=== PATIENT | female | born 1985 | race Caucasian/White ===

== ENCOUNTER → 2017-07-11 10:04 | Outpatient (CLI) | payer OTHER, SELFPAY ==
[2017-07-11 14:49] LABS: Chlamydia Trachomatis by PCR Negative (Negative); Neisserai gonorrhoeae by PCR Negative (Negative); Probe Check PASS; Sample Adequacy Control PASS; Specimen Processing Control PASS
[2017-07-14 13:21] LABS: HPV Reflexed? NOT INDICATED
== END ==
PROVIDERS: Visit Provider Obstetrics & Gynecology
DX: Z12.4 Encounter for screening for malignant neoplasm of cervix (principal); Z11.3 Encounter for screening for infections with a predominantly sexual mode of transmission
CPT/HCPCS: 87491; 87591; 88175; G0145

== ENCOUNTER → 2017-07-21 15:21 | Outpatient (CLI) | payer OTHER, SELFPAY ==
[2017-07-21 16:49] LABS: Absolute Lymphocyte Count 1.67 X10^3/ul (0.83-4.51); Absolute Neutrophil Count 5.3 X10^3/uL (2.0-7.7); Basophil# 0.01 X10^3/uL; Basophil% 0.1 % (0-1); Color, Urine Yellow (Yellow); Eosinophil# 0.13 X10^3/uL; Eosinophils% 1.7 % (0-5); Glucose, Dipstick Normal (Normal); Hematocrit 41.5 % (37-47); Hemoglobin 14.4 g/dl (12.0-15.0); Ketone-Dipstick Negative (Negative); Leukocyte Esterase-Dipstick 100 /ul (Negative); Lymphocyte # 1.67 X10^3/ul (4.0); Lymphocyte % 22.1 % (19-41); Mean Corp Hgb Conc 34.7 g/gl (32-36); Mean Corpuscular Hgb 30.3 pg (27.0-32.0); Mean Corpuscular Volume 87.2 fL (81-99); Mean Platelet Vol. 10.7 fl (6.2-12.0); Monocyte# 0.47 X10^3/uL; Monocyte% 6.2 % (0-10); Neutrophil # 5.25 X10^3/uL (2.7-7.7); Neutrophil % 69.8 % (47-70); Nitrite-Dipstick Negative (Negative); Occult Blood-Urine 10 /ul (Negative); Platelet Count 294 K/mm3 (150-450); Protein-Dipstick 15 mg/dl (Negative); RBC Distribution Width SD 40.5 fl (35.1-43.9); Red Blood Count 4.76 M/mm3 (4.2-5.4); Urine Bilirubin Dipstick Negative (Negative); Urine Clarity Cloudy (Clear); Urine Urobilinogen Normal (Normal); White Blood Count 7.5 K/mm3 (4.4-11.0)
[2017-07-21 16:51] LABS: POSITIVE COUNT NO; POSITIVE DIFFERENTIAL NO; POSITIVE MORPHOLOGY NO
[2017-07-21 17:23] LABS: Thyroid Stim Hormone (TSH) 0.14 uIU/mL (0.358-3.74)
[2017-07-21 18:01] LABS: HIV - WCH Non-Reactive (Nonreactive); Rubella IgG 26.4 IU/mL
[2017-07-28 09:09] LABS: Prenatal RPR NONREACTIVE (NONREACTIVE)
[2017-07-30 03:05] LABS: Free T3 3.2 pg/mL (2.18-3.98)
[2017-07-31 11:57] LABS: HEPATITIS B SURFACE AG Negative (Negative); Hep C Antibodies <0.1 s/co ratio (0.0-0.9)
== END ==
PROVIDERS: Visit Provider Obstetrics & Gynecology
DX: O99.281 Endocrine, nutritional and metabolic diseases complicating pregnancy, first trimester (principal); E03.9 Hypothyroidism, unspecified; Z3A.00 Weeks of gestation of pregnancy not specified
CPT/HCPCS: 36415; 81002; 84439; 84443; 84481; 85025; 86703; 86762; 86803; 87340

== ENCOUNTER → 2017-12-04 16:22 | Outpatient (CLI) | payer OTHER, SELFPAY ==
[2017-12-04 17:52] LABS: Glucose Challenge Gest 1H 50g 144 mg/dL (70-140)
[2017-12-04 18:02] LABS: Hematocrit 35.3 % (37-47); Hemoglobin 11.6 g/dl (12.0-15.0); Mean Corp Hgb Conc 32.9 g/gl (32-36); Mean Corpuscular Hgb 29.5 pg (27.0-32.0); Mean Corpuscular Volume 89.8 fL (81-99); Mean Platelet Vol. 10.1 fl (6.2-12.0); Platelet Count 233 K/mm3 (150-450); RBC Distribution Width CV 13.6 % (11.6-14.6); RBC Distribution Width SD 44.6 fl (35.1-43.9); Red Blood Count 3.93 M/mm3 (4.2-5.4); White Blood Count 8.3 K/mm3 (4.4-11.0)
[2017-12-04 18:06] LABS: Scan Indicated on CBC? Y/N NO
== END ==
PROVIDERS: Visit Provider Obstetrics & Gynecology
DX: Z34.83 Encounter for supervision of other normal pregnancy, third trimester (principal)
CPT/HCPCS: 36415; 82950; 85027

== ENCOUNTER → 2017-12-11 09:27 | Outpatient (CLI) | payer OTHER, SELFPAY ==
[2017-12-11 11:22] LABS: Glucose GTT-Gestation. Fasting 80 mg/dL (<105)
[2017-12-11 12:21] LABS: Glucose GTT-Gestational 1 Hr 118 mg/dL (<190)
[2017-12-11 14:24] LABS: Glucose GTT-Gestational 2 Hr 117 mg/dL (<165)
[2017-12-11 14:25] LABS: Glucose GTT-Gestational 3 Hr 76 L (<145)
== END ==
PROVIDERS: Referring Provider Obstetrics & Gynecology; Visit Provider Obstetrics & Gynecology
DX: O24.912 Unspecified diabetes mellitus in pregnancy, second trimester (principal)
CPT/HCPCS: 36415; 82951; 82952

== ENCOUNTER → 2018-01-29 11:14 | Outpatient (CLI) | payer OTHER, SELFPAY | PROVIDERS: Visit Provider Obstetrics & Gynecology | DX: Z36.85 Encounter for antenatal screening for Streptococcus B (principal) | CPT/HCPCS: 87081 ==

== ENCOUNTER 2018-02-18 04:03 | Inpatient (IN) | payer OTHER, SELFPAY ==
[2016-02-29 19:20] VITALS: BMI 32.1
[2018-02-18 04:05] VITALS: BMI 33.5
[2018-02-18] MEDS: Lactated Ringers 1,000 ML 50 ML IV ×2 (04:15→10:23)
[2018-02-18 04:27] LABS: Hematocrit 31.3 % (37-47); Mean Corp Hgb Conc 31.9 g/gl (32-36); Mean Corpuscular Hgb 27.3 pg (27.0-32.0); Mean Corpuscular Volume 85.5 fL (81-99); Mean Platelet Vol. 10.7 fl (6.2-12.0); Platelet Count 221 K/mm3 (150-450); RBC Distribution Width CV 14.9 % (11.6-14.6); RBC Distribution Width SD 45.1 fl (35.1-43.9); Red Blood Count 3.66 M/mm3 (4.2-5.4); Scan Indicated on CBC? Y/N NO
--- NOTE | 2018-02-18 04:31 | PCM.PN.BLA ---
Progress Note 39 3/7 wk SROM at 0245 , clear EFM 150 with accels, avg variability. several ? subtle lates UCs q 3- 4mins cx: 2 / BALLOTABLE per RN check A/P 39 3/7 wk EGA SROM. Ballotable 2 cm. Admit pitocin augment prn. Watch tolerance of labor, progress. Prior LGA 9# + delivery.
[2018-02-18] MEDS: Oxytocin 30 units/NS 500 ml 30 UNITS/500 ML IV.SOLN IV (07:21)
--- NOTE | 2018-02-18 08:58 | PCM.PN.BLA ---
Progress Note 39 3/7 wk EGA. SROM Sitting up in chair, rocking. Rates pain at 1/10 on pain scale AVSS Pitocin started, @ 4 mIU/min during my rounds EFM 140s min to avg variability. Accels. UCs q 3-4 mins CX; deferred 2/2 SROM. 2.5/70/-3 on admission with ballotable vtx. A/P: SROM at 29 3/7 wk Pitocin induction after SROM. Continue pitocin per protocol. Watch progress, descent. Anticipate
[2018-02-18] MEDS: fentaNYL-bupivacaine (epidural) 100 ML BAG EPIDURAL (10:50)
--- NOTE | 2018-02-18 13:38 | PCM.PN.BLA ---
Progress Note LABOR PROGRESS NOTE 39 3/7 wk. Labor Comfortable w/ epidural. Joyce catheter in place AVSS Pitocin induction after SROM EFM 130-140s avg variability. accels UCs q 2-3 mins Cervix: 4/75/-2 with caput noted. Joyce bulb reduced to above vtx A/P: 39 3/7 wk EGA Pitocin induction after SROM. continue pitocin. Position changes to facilitate rotation and descent. Anticipate
[2018-02-18] MEDS: Oxytocin 30 units/NS 500 ml 30 UNITS/500 ML IV.SOLN 334 UNITS IV (15:06)
--- NOTE | 2018-02-18 15:08 | PCM.OB.VAG ---
Vaginal Delivery Maternal Presentation: Spontaneous Rupture of Membranes 39 3/7 wk SROM Method of Induction: Pitocin Amniotic Membrane Rupture Type: Spontaneous at home Amniotic Fluid Description: Clear Final ANDRÉS: 02/22/18 Gestational age: 39 Weeks and 3 Days Date of Procedure: 02/18/18 Pre-Operative Diagnosis: 39 3/7 wk SROM Post-Operative Diagnosis: same Surgery/ Procedure Performed: Spontaneous Vaginal Delivery Anesthesiologist: Suzanna Gordon Type of Anesthesia: Epidural Description of Procedure: of a corbin viable female over intact perineum to laceration. Head delivered DWAYNE. OP and nares bulb suctioned on perineum. No nuchal cord. Shoulders delivered easily with forward rotation of anterior shoulder. Infant to maternal abdomen . Delayed cord clamping, then cord clamped x two and cut. PP exam: 2nd deg posterior vaginal and perineal laceration repaired to hemostatic, intact under epidural with 3-0 Vicryl No other lacerations noted Placenta delivered by spont expulsion, expression. 3V normal appearing, intact with trailing membranes EBL 250 cc Pt and infant tolerated delivery well. To recovery, stable condition Ray lane counts correct x two. Presentation: Vertex, DWAYNE Placental Delivery Description: Spontaneous, Expressed Cord Vessel Description: 3 Vessels Cord Entanglement: None Estimated Blood Loss: 250 Infant A gender: Female (1 minute): 8 (5 minute): 9 Episiotomy Description: None Laceration: Midline, Perineal Extension/lac, Vaginal Extension/lac, 2nd degree - repaired to hemostatic, intact with 3-0 vicryl Medications given after delivery: IV Pitocin Complications: None
--- NOTE | 2018-02-18 15:12 | PCM.DCVAG ---
Discharge Diet: No Restrictions Return to work on:: 04/02/18 May resume sexual activity in: 4-6 weeks Additional Activity Instructions:: Nothing in the vagina for 4-6 weeks. You may return to work/school in 6 weeks. Additional Instructions: If you experience any of the following, contact your healthcare provider. Bleeding that soaks a pad every hour for 2 hours Fever 100.4 or higher Unrelieved abdominal pain Problems urinating (including inability to urinate or burning while urinating). Visual changes Severe headache Flu-like symptoms Pain or redness in one of both of your breasts Pain, warmth, tenderness or swelling in your legs, especially the calf area Frequent nausea and vomiting Symptoms of depression or anxiety If you experience any of the following, call 911 or go to the nearest Emergency Room. Chest pain Problems breathing Seizure activity Partial or complete paralysis of a body part, slurred speech, weakness or drooping of the face, or a sudden inability to walk or hold your balance Allergies/Adverse Reactions: Allergies No Known Allergies Allergy (Verified 02/18/18 04:41) Medications to take at Discharge Vits [Prenatabs FA] 2 tablet PO DAILY 02/29/16 Please Follow Up With: Janet Montes MD - [phone] When: Call to make an appointment with your doctor in 6 weeks. Primary Care Physician: Care Physician,No Primary [Primary Care Provider] - Test Results: Test results from this visit will be discussed in further detail at your follow-up appointment, if applicable. Proposed Discharge Date: 02/20/18
--- NOTE | 2018-02-18 15:13 | DCINST_ITS ---
Discharge Diet: No Restrictions Return to work on:: 04/02/18 May resume sexual activity in: 4-6 weeks Additional Activity Instructions:: Nothing in the vagina for 4-6 weeks. You may return to work/school in 6 weeks. Additional Instructions: If you experience any of the following, contact your healthcare provider. * Bleeding that soaks a pad every hour for 2 hours * Fever 100.4 or higher * Unrelieved abdominal pain * Problems urinating (including inability to urinate or burning while urinating). * Visual changes * Severe headache * Flu-like symptoms * Pain or redness in one of both of your breasts * Pain, warmth, tenderness or swelling in your legs, especially the calf area * Frequent nausea and vomiting * Symptoms of depression or anxiety If you experience any of the following, call 911 or go to the nearest Emergency Room. * Chest pain * Problems breathing * Seizure activity * Partial or complete paralysis of a body part, slurred speech, weakness or drooping of the face, or a sudden inability to walk or hold your balance Allergies/Adverse Reactions: Allergies No Known Allergies Allergy (Verified 02/18/18 04:41) Medications to take at Discharge Vits [Prenatabs FA] 2 tablet PO DAILY 02/29/16 Please Follow Up With: Janet Montes MD - [phone] When: Call to make an appointment with your doctor in 6 weeks. Primary Care Physician: Care Physician,No Primary [Primary Care Provider] - Test Results: Test results from this visit will be discussed in further detail at your follow- up appointment, if applicable. Proposed Discharge Date: 02/20/18
[2018-02-18] MEDS: Oxytocin 30 units/NS 500 ml 30 UNITS/500 ML IV.SOLN 167 UNITS IV (15:36)
[2018-02-18] MEDS: 0.9% Saline Lock 10 ML Syringe IV (17:27)
[2018-02-18] MEDS: Ibuprofen 600 MG Tablet PO (18:55)
[2018-02-18 20:00] VITALS: BP 117/48; PULSE 87; RESP 17; TEMP 37.2
[2018-02-18] MEDS: Senna/Docusate Sodium 1 Tablet PO (21:25)
[2018-02-18] MEDS: Dibucaine 30 GM Tube 1 APPLIC TOPICAL (21:25)
[2018-02-19] VITALS: BP 107/56; PULSE 87; RESP 17; TEMP 36.5
--- NOTE | 2018-02-19 08:00 | PCM.PN.OB ---
Subjective: PPD#1 Doing well. breast feeding, but baby is sleeping very well. Minimal discomfort at stitches. No concerns voiced. Baby 9# 2 oz. - Physical Exam General: Alert, Oriented x3, Cooperative, No apparent distress HEENT: Atraumatic Neck: Supple Abdomen: Soft - Fundus firm NT at umbilicus Psych/Mental Status: Normal Affect Vital Signs Temp Pulse Resp BP 97.7 F L 87 17 107/56 L 02/19/18 00:00 02/19/18 00:00 02/19/18 00:00 02/19/18 00:00 Weight: 100.244 kg Body Mass Index (BMI) 33.5 Intake and Output for Last 24 Hours 02/17/18 02/18/18 02/19/18 23:59 23:59 23:59 Intake Total 3308 / 3308 Output Total 1850 / 1850 450 / 450 Balance 1458 / 1458 -450 / -450 Medical Necessity - Tobacco Use Smoking Status: Never smoker Assessment/Plan PPD#1 Stable pp Continue care.
[2018-02-19] MEDS: Ibuprofen 600 MG Tablet PO (08:26)
[2018-02-19 09:00] VITALS: BP 128/57; PULSE 104; RESP 16; TEMP 36.4; O2SAT 97
[2018-02-19 13:05] VITALS: BP 116/73; PULSE 96; RESP 16; TEMP 36.7; O2SAT 99
[2018-02-19] MEDS: Prenatal Vits Tablet 1 TABLET PO (13:23)
[2018-02-19 20:06] VITALS: BP 114/57; PULSE 103; RESP 16; TEMP 36.9
[2018-02-20 02:30] VITALS: BP 125/67; PULSE 81; RESP 16; TEMP 37.1
--- NOTE | 2018-02-20 08:01 | PCM.PN.OB ---
Subjective: PPD#2 cramping with nursing but otherwise feeling well. No concerns voiced. Breast feeding well. Plans to take Tylenol and ibuprofen for cramping. - Physical Exam General: Alert, Oriented x3, Cooperative, No apparent distress HEENT: Atraumatic Neck: Supple Abdomen: Soft - Firm NT at umbilicus Psych/Mental Status: Normal Affect Vital Signs Temp Pulse Resp BP Pulse Ox 98.8 F 81 16 125/67 H 99 02/20/18 02:30 02/20/18 02:30 02/20/18 02:30 02/20/18 02:30 02/19/18 13:05 Oxygen Delivery Method Room Air Weight: 100.244 kg Body Mass Index (BMI) 33.5 Intake and Output for Last 24 Hours 02/18/18 02/19/18 02/20/18 23:59 23:59 23:59 Intake Total 3308 / 3308 Output Total 1850 / 1850 950 / 950 Balance 1458 / 1458 -950 / -950 Medical Necessity - Tobacco Use Smoking Status: Never smoker Assessment/Plan PPD#2 Stable pp Dischg home today. RTO in 6 wk for pp check.
[2018-02-20 08:35] VITALS: BP 109/59; PULSE 98; RESP 16; TEMP 37.1; O2SAT 99
== END 2018-02-20 10:26 | disposition home or self-care (01) | DRG 807 ==
PROVIDERS: Admitting Provider Obstetrics & Gynecology; Referring Provider Obstetrics & Gynecology; Visit Provider Obstetrics & Gynecology
DX: O70.1 Second degree perineal laceration during delivery (principal); Z37.0 Single live birth; Z3A.39 39 weeks gestation of pregnancy
CPT/HCPCS: 59025; 59050; 85027; 86850; 86900; 99218; J7120; 90686; A4216; G0378

== ENCOUNTER → 2020-11-04 09:22 | Outpatient (CLI) | payer OTHER, SELFPAY ==
--- NOTE | 2020-11-04 09:27 | BI_ITS ---
MAMMOGRAPHY - BILATERAL DIAGNOSTIC REASON FOR EXAM: Female, 35 years old. 3 month history of a left breast lump. PERTINENT HISTORY: Non-contributory. TECHNIQUE: Digital bilateral breast fei (3D mammographic acquisition) in the CC and MLO projections. 2-D mediolateral oblique (MLO) and craniocaudad (CC) views of both breasts were obtained. CAD: Full Field Digital Mammography with Computer Added Detection was performed. COMPARISON: None. Baseline examination. FINDINGS: Breast Composition: The breasts are extremely dense, which lowers the sensitivity of mammography. There is a 2.4 cm x 2.8 cm slightly lobulated nodule in the anterior upper lateral aspect of the left breast. Correlation with ultrasound is recommended for further evaluation. No other significant abnormalities are identified. BI/DIAG MAMM W/CAD, BILAT IMPRESSION: The palpable abnormality corresponds to 2.4 cm x 2.8 cm slightly lobular nodule in the anterior upper lateral aspect of the left breast. Correlation with ultrasound is recommended. ASSESSMENT CATEGORY: BIRADS Category 0: Incomplete. Need additional imaging evaluation. A letter regarding these results will be sent to the patient by the facility within 30 days. Approximately 10% of breast cancers are not detected by mammography. A normal mammogram should not delay biopsy of a clinically suspicious abnormality. Electronically Signed: Peterson Miller MD at 10:42 EDT , Service support ,
--- NOTE | 2020-11-04 09:28 | US_ITS ---
STUDY: ULTRASOUND BREAST - LEFT REASON FOR EXAM: Female, 35 years old. Palpable lump left breast. TECHNIQUE: Axial and longitudinal images of the LEFT breast were performed with a high resolution ultrasound transducer. # OF IMAGES: 28 COMPARISON: Comparison is made with prior mammogram done earlier in the day. FINDINGS: LEFT Breast: The palpable abnormality corresponds to a 2.7 cm x 2.6 cm x 1.6 cm slightly lobular hypoechoic heterogeneous solid nodule at the 1 o''clock position of the breast at 2 cm from the nipple. Biopsy recommended. US/Breast Limited Unilateral IMPRESSION: The palpable abnormality corresponds to a 2.7 cm x 2.6 cm x 1.6 cm lobular hypoechoic heterogeneous solid nodule at the 1 o''clock position of the breast at 2 cm from nipple. Biopsy recommended. ASSESSMENT CATEGORY: BIRADS Category 4: Suspicious - Biopsy Should Be Considered. A letter regarding these results will be sent to the patient by the facility within 30 days. Electronically Signed: Peterson Miller MD at 10:48 EDT , Service support ,
== END ==
PROVIDERS: PCP Family Medicine; Referring Provider Obstetrics & Gynecology; Visit Provider Obstetrics & Gynecology
DX: N63.21 Unspecified lump in the left breast, upper outer quadrant (principal)
CPT/HCPCS: 76642; 77062; 77066; G0279

== ENCOUNTER → 2020-11-09 | Outpatient (CLI) | payer OTHER, SELFPAY ==
--- NOTE | 2020-11-09 | BRBX_PTH ---
PATIENT: EDGAR LEWIS LOC: [facility] U#:[id number] AGE/SX: 35/F ROOM: RE11/09/[address]: Dr. Ector Greenwood MD : 1985 BED: DIS: 11/09/2020 SPEC #: [id number] RECD: 11/09/20 13:04 STATUS: FLAKITA REMEDIOS #: [id number] GROVER: 11/09/20 00:[address]: Ector Greenwood DEPT: SURGICAL PATHOLOGY RECD BY: Kris Mratino ENTERED: 11/09/20 13:04 SP TYPE: BREAST BX OTHR DR: Dr. Nevaeh Hollis MD Tissues: Left breast, NOS Procedures: Surgery Specimen Level IV HEADER OPERATION: Ultrasound-guided needle core biopsy left breast PRE-OP DIAGNOSIS: Left breast lump TISSUE SUBMITTED: Left breast tissue FIXATION TIME: 9 hours MICROSCOPIC DIAGNOSIS Left breast tissue, ultrasound-guided core biopsy: Fibroadenoma. Negative for atypia or malignancy. SJ:izzy 11/10/2020 MICROSCOPIC DESCRIPTION Slides are reviewed. GROSS DESCRIPTION Received in fixative is one container labeled with the patient's name and designated left breast tissue. The specimen consists of multiple irregular and elongated fragments of douglas-white soft tissue that in aggregate measure 2 x 0.6 x 0.1 cm. The specimen is totally submitted in one cassette. / AM:izzy 11/09/20 TC:1 CPT: 80845
== END | disposition home or self-care (01) ==
LOC: LABSPEC 12:15
PROVIDERS: PCP Family Medicine; Visit Provider Surgery
DX: N63.0 Unspecified lump in unspecified breast (principal)
CPT/HCPCS: 88305; J7030

== ENCOUNTER 2021-03-10 15:48 | Outpatient (CLI) | payer OTHER, SELFPAY ==
[2021-03-15 13:35] LABS: HPV APTIMA, High Risk Negative (Negative)
== END 2021-03-10 23:59 | disposition short-term general hospital (02) ==
LOC: LABSPEC 15:49
PROVIDERS: PCP Family Medicine; Visit Provider Obstetrics & Gynecology
DX: Z12.4 Encounter for screening for malignant neoplasm of cervix (principal)
CPT/HCPCS: 87624; 88175; G0145

== ENCOUNTER → 2021-11-12 | Outpatient (CLI) | payer OTHER, SELFPAY ==
--- NOTE | 2021-11-12 12:17 | US_ITS ---
STUDY: ULTRASOUND BREAST - LEFT REASON FOR EXAM: Female, 36 years old. Short interval follow-up TECHNIQUE: Axial and longitudinal images of the LEFT breast were performed with a high resolution ultrasound transducer. # OF IMAGES: 15 COMPARISON: 11/04/2020 FINDINGS: LEFT Breast: Heterogeneous background echotexture. At 1 o''clock, 3 cm from the nipple, ultrasound demonstrates no change in a 2.5 cm oval parallel microlobulated hypoechoic mass with no posterior features which has been biopsied.: US/Breast Limited Unilateral IMPRESSION: No change in 2.5 cm hypoechoic mass in the left breast which has been biopsied. ASSESSMENT CATEGORY: BIRADS Category 2: Benign. A letter regarding these results will be sent to the patient by the facility within 30 days. Electronically Signed: Johnie Garland MD at 14:30 EDT ,
== END | disposition home or self-care (01) ==
LOC: OPUS 12:15
PROVIDERS: PCP Family Medicine; Visit Provider Surgery
DX: D24.2 Benign neoplasm of left breast (principal)
CPT/HCPCS: 76642

== ENCOUNTER → 2025-01-15 | Outpatient (CLI) | payer OTHER, SELFPAY ==
[2025-01-15 12:28] LABS: Hematocrit 41.9 % (37-47); Hemoglobin 13.8 g/dL (12.0-15.0); Immature Granulocytes Count 0.010 X10^3/uL (0.0-0.0); Mean Corp Hgb Conc 32.9 g/dL (32-36); Mean Corpuscular Volume 86.7 fL (81-99); Mean Platelet Vol. 11.0 fl (6.2-12.0); NRBC Flagged by Analyzer 0 % (0-5); Platelet Count 320 K/mm3 (150-450); RBC Distribution Width CV 13.3 % (11.6-14.6); RBC Distribution Width SD 41.8 fl (35.1-43.9); Red Blood Count 4.83 M/mm3 (4.2-5.4); White Blood Count 5.2 K/mm3 (4.4-11.0)
[2025-01-15 13:41] LABS: AST(SGOT) 20 U/L (<=31); Alanine Aminotransfer ALT/SGPT 16 U/L (<=34); Albumin, Serum 4.4 g/dL (3.5-5.0); Alkaline Phosphatase 72 U/L (35-104); Anion Gap 12 (5-15); BUN 10 mg/dL (4-19); BUN/Creat Ratio 11.7 RATIO (10-20); Calcium,Total 9.5 mg/dL (7.6-11.0); Carbon Dioxide 19.8 mmol/L (21.0-32.0); Chloride 106 mmol/L (98-108); Cholesterol 197 mg/dL (<=200); Globulin 3.0 g/dL (2.2-4.2); Glucose 102 mg/dL (70-99); Low Density Lipoprotein Calc. 129 mg/dL; Potassium 4.1 mmol/L (3.3-5.1); Triglycerides 82 mg/dL; Very Low Density Lipoprotein 16 mg/dL (5-40); Vitamin D,25 Hydroxy 19.5 ng/mL (30-100); cholesterol:hdl ratio screen 3.74
== END | disposition home or self-care (01) ==
LOC: BFHLAB 10:29
PROVIDERS: PCP Nurse Practitioner Family; Visit Provider Nurse Practitioner Family
DX: Z00.01 Encounter for general adult medical examination with abnormal findings (principal); E55.9 Vitamin D deficiency, unspecified
CPT/HCPCS: 36415; 80053; 80061; 82306; 85025